=== PATIENT | male | born 1975 | race Two or more races ===

== ENCOUNTER 2023-12-04 17:34 | Emergency (ER) | payer OTHER ==
[~2023-12-04] VITALS: Ht 165.1 cm; Wt 77.1 kg
[2023-12-04] MEDS ORDERED: ONDANSETRON HCL/PF 4 MG/2 ML VIAL ONE (17:50)
[2023-12-04] MEDS: ONDANSETRON HCL/PF 4 MG/2 ML VIAL IVP ONE (18:04)
[2023-12-04 18:24] LABS: BASOPHILS # (AUTO) 0.1 K/uL (0.0-0.2); BASOPHILS % (AUTO) 0.5 % (0.0-2.0); EOSINOPHILS # (AUTO) 0.2 K/uL (0.0-0.7); EOSINOPHILS % (AUTO) 2.3 % (0.0-6.0); HEMATOCRIT 44 % (39-51); HEMOGLOBIN 14.8 g/dL (13.5-17.5); LYMPHOCYTES # (AUTO) 3.2 K/uL (0.8-4.8); LYMPHOCYTES % (AUTO) 31.9 % (20.0-44.0); MEAN CORPUSCULAR HEMOGLOBIN 31 PG (26.0-33.0); MEAN CORPUSCULAR HGB CONC 34 g/dl (31.0-36.0); MEAN CORPUSCULAR VOLUME 91 fL (80-96); MONOCYTES # (AUTO) 0.6 K/uL (0.1-1.30); MONOCYTES % (AUTO) 6.1 % (2.0-12.0); NEUTROPHILS % (AUTO) 59.2 % (43.0-81.0); PLATELET COUNT (AUTO) 139 K/uL (150-450); RED BLOOD CELL COUNT(AUTO) 4.85 MIL/uL (4.5-6.0); RED CELL DISTRIBUTION WIDTH 13.4 % (11.5-15.0); WHITE BLOOD COUNT (AUTO) 10.1 K/uL (4.3-11.0)
[2023-12-04] MEDS ORDERED: METOCLOPRAMIDE HCL 10 MG/2 ML VIAL ONE (18:36)
[2023-12-04] MEDS ORDERED: FAMOTIDINE/PF INJ 20 MG/2 ML VIAL IV ONE (18:36)
[2023-12-04] MEDS ORDERED: diphenhydrAMINE HCL 50 MG/ML VIAL ONE (18:36)
[2023-12-04] MEDS: IV NS 0.9% 1,000 ML BAG IV ONE (18:45)
[2023-12-04] MEDS: diphenhydrAMINE HCL 50 MG/ML VIAL IV ONE (18:46)
[2023-12-04] MEDS: FAMOTIDINE/PF INJ 20 MG/2 ML VIAL IV ONE (18:46)
[2023-12-04] MEDS: METOCLOPRAMIDE HCL 10 MG/2 ML VIAL IV ONE (18:51)
[2023-12-04 18:52] LABS: CALCIUM, SERUM 9.3 mg/dL (8.5-10.1); CREATININE 1.3 mg/dL (0.6-1.3)
[2023-12-04 18:56] LABS: ALBUMIN 3.8 g/dL (3.4-5.0); BILIRUBIN,DIRECT 0.1 mg/dL (0.0-0.2); BILIRUBIN,TOTAL 0.4 mg/dL (0.2-1.0); TOTAL PROTEIN, SERUM 7.4 g/dL (6.4-8.2)
[2023-12-04] MEDS ORDERED: HALOPERIDOL LACTATE INJ 5 MG/ML VIAL ONE (19:07)
[2023-12-04] MEDS: HALOPERIDOL LACTATE INJ 5 MG/ML VIAL IV ONE (19:10)
[2023-12-04] MEDS ORDERED: METO-295 PO (19:15)
[2023-12-04 19:38] LABS: APPEARANCE,URINE CLOUDY (CLEAR); BILIRUBIN,URINE NEGATIVE (NEGATIVE); BLOOD, URINE NEGATIVE Ery/uL (NEGATIVE); COLOR,URINE YELLOW (YELLOW); KETONES,URINE TRACE mg/dL (NEGATIVE); LEUKOCYTE ESTERASE ,URINE NEGATIVE (NEGATIVE); NITRITE, URINE NEGATIVE (NEGATIVE); PH,URINE 8.5 (5.0-8.0); PROTEIN,URINE NEGATIVE (NEGATIVE); UGLUCOSE NEGATIVE (NEGATIVE); UROBILINOGEN,URINE 0.2 EU/dL (0.2)
[2023-12-04] MEDS: LIDOCAINE VISCOUS 2% UD 15 ML UDC MM ONE (20:29)
[2023-12-04] MEDS: MAG HYDROX/AL HYDROX/SIMETH 30 ML UDC PO ONE (20:29)
[2023-12-04 20:37] VITALS: BP 118/67; TEMP 98.2; O2SAT 99
[2023-12-04 21:31] LABS: ADD URINE CULTURE NO; BACTERIA,URINE None seen /HPF (None Seen); RBC,URINE 0-2 /HPF (0-2); SQUAMOUS EPITHELIAL CELL,UR 0-2 /HPF (None Seen); URINE AMORPHOUS PHOSPHATES Moderate /HPF (None Seen); WBC,URINE 0-2 /HPF (0-3)
== END 2023-12-04 20:37 | disposition home or self-care (01) ==
LOC: ER 17:38
DX: R11.2 Nausea with vomiting, unspecified (principal); R11.15 Cyclical vomiting syndrome unrelated to migraine; F17.200 Nicotine dependence, unspecified, uncomplicated; Z88.5 Allergy status to narcotic agent; Z91.010 Allergy to peanuts
CPT/HCPCS: 99284; 96374; 96375; 71045; 96361; 85025; 80048; 83690; 80076; 81001; 36415; J1200; J1630; J3490; J2765; J2405; J7030 ×2